=== PATIENT | male | born 1975 | race Asian ===

== ENCOUNTER → 2023-07-03 09:43 | Outpatient (CLI) | payer OTHER, MEDICAID, SELFPAY ==
--- NOTE | 2023-07-03 09:45 | DI.RAD.S_ITS ---
PROCEDURE: XR ELBOW LT MIN 3V INDICATIONS: L elbow pain w/tender nodule on lateral epicondyle TECHNIQUE: 3 views of the elbow were acquired. COMPARISON: None. FINDINGS: Bones: No displaced fracture or dislocation. Possible small enthesophyte at the lateral epicondyle. Soft tissues: No significant effusion. IMPRESSION: No acute radiographic abnormality. Possible small enthesophyte at the lateral epicondyle. Please consider MRI to further evaluate if clinically indicated. Dictated by: Elder Bonilla M.D. on 07/03/2023 at 10:52 Approved by: Elder Bonilla M.D. on 07/03/2023 at 10:53
[2023-07-03 10:52] LABS: Add Manual Diff / Slide Review NO; Basophils Absolute Auto 100 /uL (0-100); Basophils Percent Auto 0.8 % (0-2); Eosinophils Absolute Auto 200 /uL (0-450); Eosinophils Percent Auto 2.3 % (2-4); Hematocrit 42.2 % (41-53); Hemoglobin 14.2 g/dL (13.5-17.5); Lymphocytes Absolute Auto 2800 /uL (1100-4500); Lymphocytes Percent Auto 38.8 % (25-40); Mean Corpuscular HGB Conc 33.7 % (30-36); Mean Corpuscular Hemoglobin 31.2 PG (26-34); Mean Corpuscular Volume 92.5 fL (80-100); Monocytes Absolute Auto 500 /uL (0-900); Monocytes Percent Auto 7.2 % (3-14); Neutrophils Absolute Auto 3600 /uL (1500-7000); Neutrophils Percent Auto 50.9 % (50-75); Platelet Count 272 X10^3/uL (150-400); Red Blood Cell Count 4.56 X10^6/uL (4.5-5.9); Red Cell Distribution Width 12.5 % (11.6-14.8); White Blood Cell Count 7.2 X10^3/uL (4.5-11.0)
[2023-07-03 11:10] LABS: Hemoglobin A1C% w Est Avg Glu 5.6 % (4.0-6.0)
[2023-07-03 11:11] LABS: Alanine Aminotransferase 26 IU/L (<50); Albumin 4.1 g/dL (3.5-5.0); Albumin Globulin Ratio 1.4 (1.0-2.8); Alkaline Phosphatase 53 U/L (38-126); Aspartate Aminotransferase 26 IU/L (17-59); BUN Creatinine Ratio 18.1 (6-22); Bilirubin Total 0.6 mg/dL (0.2-1.3); Blood Urea Nitrogen 15 mg/dL (9-20); Calcium 8.9 mg/dL (8.4-10.2); Carbon Dioxide 25 mmol/L (22-32); Chloride 106 mmol/L (98-107); Cholesterol 185 mg/dL (140-199); Estimated Glomerular Filt Rate > 60 mL/min (>60); Glucose 108 mg/dL (70-100); HDL Cholesterol 34 mg/dL (40-60); HEMOLYSIS < 15 (0-50); LDL Cholesterol Calculated 117 mg/dL (<100); Potassium 4.4 mmol/L (3.4-5.1); Sodium 139 mmol/L (137-145); Total Protein 7.1 g/dL (6.3-8.2); Triglycerides 170 mg/dL (35-150)
== END ==
PROVIDERS: PCP Family Medicine; Referring Provider Family Medicine; Visit Provider Family Medicine
DX: M25.522 Pain in left elbow (principal); R53.83 Other fatigue; I10 Essential (primary) hypertension; E78.5 Hyperlipidemia, unspecified
CPT/HCPCS: 36415; 73080; 80053; 80061; 83036; 85025

== ENCOUNTER → 2023-07-16 09:57 | Outpatient (CLI) | payer OTHER, MEDICAID, SELFPAY ==
--- NOTE | 2023-07-16 09:58 | DI.US.S_ITS ---
PROCEDURE: US EXTREMITY NONVASC UPPER LT INDICATIONS: LEFT ELBOW PAIN. LEFT ELBOW LUMP. TECHNIQUE: Real-time scanning was performed of the left oval, with image documentation. COMPARISON: None. FINDINGS: Focused ultrasound examination of left elbow at patient's reported area of palpable lump show no discrete soft tissue mass or fluid collection. IMPRESSION: No abnormality is noted in lateral left elbow at patient's reported area of palpable lump. Dictated by: Horace De Jesus M.D. on 07/16/2023 at 12:52 Approved by: Horace De Jesus M.D. on 07/16/2023 at 12:53
== END ==
PROVIDERS: PCP Family Medicine; Referring Provider Family Medicine; Visit Provider Family Medicine
DX: M25.522 Pain in left elbow (principal)
CPT/HCPCS: 76882

== ENCOUNTER → 2024-02-07 09:21 | Outpatient (CLI) | payer OTHER, SELFPAY ==
--- NOTE | 2024-02-07 09:22 | DI.CT.S_ITS ---
PROCEDURE: CT LUNG LOW DOSE SCREENING INDICATIONS: Former Smoker TECHNIQUE: Noncontrast 2.0-2.5 mm thick sections acquired from the pulmonary apices to the posterior costophrenic angles. 7 mm thick axial MIP, and 5 mm coronal and sagittal reformats were then acquired. For radiation dose reduction, the following was used: automated exposure control, adjustment of mA and/or kV according to patient size. COMPARISON: None. FINDINGS: Image quality: Diagnostic. Lower Neck: No enlarged lymph nodes. Thyroid: No thyroid nodules which require sonographic follow up, per consensus guidelines. Axillae: No enlarged lymph nodes. Chest Wall: Unremarkable. Bones: Unremarkable. Lungs and Pleura: There is a 2 mm calcified stone in the left lower lobe (series 3, image 154), compatible with an old granuloma. No pneumothorax or pleural effusions. No consolidation. Heart: Heart size is normal. No pericardial effusion. Thoracic Vessels: The aorta and pulmonary arteries demonstrate normal size. Mediastinum and Skylar: There is a 2.3 x 2.4 by 5.1 cm low-density mass in the right paratracheal area demonstrating CT density 19.3. Esophagus: No wall thickening. Small hiatal hernia. Upper Abdomen: Visualized upper abdomen solid organs and bowel loops appear normal. IMPRESSION: 1. No suspicious pulmonary nodules. LUNG-RADS 2; continued annual screening, if eligible. 2. A 2.3 x 2.4 by 5.1 cm low-density mass in the right paratracheal area. Differential diagnoses are a duplication cyst versus an enlarged lymph node. Consider CT with contrast for further evaluation. Dictated by: Robert Aguilar M.D. on 02/07/2024 at 10:09 Approved by: Robert Aguilar M.D. on 02/07/2024 at 10:27
== END ==
LOC: CT 09:22
PROVIDERS: PCP Family Medicine; Referring Provider Family Medicine; Visit Provider Family Medicine
DX: Z12.2 Encounter for screening for malignant neoplasm of respiratory organs (principal); Z87.891 Personal history of nicotine dependence; R91.8 Other nonspecific abnormal finding of lung field; K44.9 Diaphragmatic hernia without obstruction or gangrene
CPT/HCPCS: 71271

== ENCOUNTER → 2024-02-18 10:40 | Outpatient (CLI) | payer OTHER, SELFPAY ==
--- NOTE | 2024-02-18 11:00 | DI.CT.S_ITS ---
PROCEDURE: CT CHEST W CON INDICATIONS: Right paratracheal/mediatinal mass on 02/[address] TECHNIQUE: After the administration of intravenous contrast, 5 mm thick sections acquired from the pulmonary apices to the posterior costophrenic angles. 1 mm axial lung, 5 mm thick coronal and sagittal reformats and 7 mm axial MIP were acquired. For radiation dose reduction, the following was used: automated exposure control, adjustment of mA and/or kV according to patient size. COMPARISON: [facility], CT, CT LUNG LOW DOSE SCREENING, 02/07/2024, 9:38. FINDINGS: Image quality: Diagnostic. Lower Neck: No enlarged lymph nodes. Thyroid: No thyroid nodules which require sonographic follow up, per consensus guidelines. Axillae: No enlarged lymph nodes. Chest Wall: Unremarkable. Bones: Unremarkable. Lungs and Pleura: No pneumothorax or pleural effusions. There is a calcified granuloma in the left lower lobe. No focal consolidation. Heart: Heart size is normal. No pericardial effusion. Thoracic Vessels: The aorta and pulmonary arteries demonstrate normal size. Mediastinum and Skylar: There is a 2.5 x 2.1 x 5.0 cm low-density mass in the right paratracheal area demonstrating no visible contrast enhancement, most likely a benign cyst. No enlarged lymph nodes. Esophagus: No wall thickening. Small hiatal hernia. Upper Abdomen: Visualized upper abdomen solid organs and bowel loops appear normal. IMPRESSION: 1. The 2.5 x 2.1 x 5.0 cm low-density mass in the right paratracheal area demonstrates no visible enhancement, compatible with a benign mass such as a duplication cyst. Dictated by: Robert Aguilar M.D. on 02/18/2024 at 15:14 Approved by: Robert Aguilar M.D. on 02/18/2024 at 15:22
== END ==
PROVIDERS: PCP Family Medicine; Referring Provider Family Medicine; Visit Provider Family Medicine
DX: J98.59 Other diseases of mediastinum, not elsewhere classified (principal); K44.9 Diaphragmatic hernia without obstruction or gangrene
CPT/HCPCS: 71260; Q9967

== ENCOUNTER → 2024-02-29 09:07 | Outpatient (CLI) | payer OTHER, SELFPAY ==
[2024-02-29 12:31] LABS: Hemoglobin A1C% w Est Avg Glu 6.3 % (4.0-6.0)
[2024-02-29 12:56] LABS: Prostate Specific Antigen Scrn 0.625 ng/mL (0.1-4.0)
== END ==
PROVIDERS: PCP Family Medicine; Referring Provider Family Medicine; Visit Provider Family Medicine
DX: R73.03 Prediabetes (principal); E78.5 Hyperlipidemia, unspecified; I10 Essential (primary) hypertension; Z12.5 Encounter for screening for malignant neoplasm of prostate; Z80.42 Family history of malignant neoplasm of prostate
CPT/HCPCS: 36415; 83036; G0103

== ENCOUNTER → 2024-03-03 13:12 | Outpatient (CLI) | payer OTHER, SELFPAY ==
--- NOTE | 2024-03-03 13:13 | DI.RAD.S_ITS ---
PROCEDURE: XR KNEE RT 3V INDICATIONS: R knee pain, swelling x4 weeks TECHNIQUE: 3 views of the knee were acquired. COMPARISON: None. FINDINGS: Bones: Prominent fabella. Widl-gf-[id number] degenerative changes particularly in the patellofemoral compartment. Patellar enthesopathy. Soft tissues: Small knee joint effusion. No suspicious calcifications. Possible prepatellar soft tissue swelling. IMPRESSION: Bbjy-tr-rmsqhqbx degenerative changes, particularly in the patellofemoral compartment. Small knee joint effusion. If there is high concern for further derangement, consider MRI evaluation. Dictated by: Elder Bonilla M.D. on 03/03/2024 at 15:45 Approved by: Elder Bonilla M.D. on 03/03/2024 at 15:46
[2024-03-03 15:01] LABS: Add Manual Diff / Slide Review NO; Basophils Absolute Auto 0 /uL (0-100); Basophils Percent Auto 0.5 % (0-2); Eosinophils Absolute Auto 100 /uL (0-450); Eosinophils Percent Auto 1.7 % (2-4); Hemoglobin 14.3 g/dL (13.5-17.5); Lymphocytes Absolute Auto 2800 /uL (1100-4500); Mean Corpuscular HGB Conc 33.4 % (30-36); Mean Corpuscular Hemoglobin 31.1 PG (26-34); Mean Corpuscular Volume 93.3 fL (80-100); Monocytes Absolute Auto 900 /uL (0-900); Monocytes Percent Auto 10.6 % (3-14); Neutrophils Absolute Auto 4400 /uL (1500-7000); Neutrophils Percent Auto 53.2 % (50-75); Platelet Count 274 X10^3/uL (150-400); Red Blood Cell Count 4.61 X10^6/uL (4.5-5.9); Red Cell Distribution Width 12.8 % (11.6-14.8); White Blood Cell Count 8.2 X10^3/uL (4.5-11.0)
[2024-03-03 15:10] LABS: D Dimer 360 ng/ml (<500)
== END ==
PROVIDERS: PCP Family Medicine; Referring Provider Family Medicine; Visit Provider Family Medicine
DX: M25.461 Effusion, right knee (principal); M25.561 Pain in right knee
CPT/HCPCS: 36415; 73562; 85025; 85379

== ENCOUNTER → 2024-03-06 06:54 | Outpatient (CLI) | payer OTHER, SELFPAY ==
--- NOTE | 2024-03-06 06:56 | DI.US.S_ITS ---
PROCEDURE: US PERIPH VENOUS LOW EXTREM RT INDICATIONS: Pain in right knee TECHNIQUE: Real-time imaging, as well as color and pulse Doppler interrogation, were performed of the lower extremity deep veins from the inguinal ligament to the popliteal fossa, with documentation of the visualized calf veins. COMPARISON: None. FINDINGS: A small fluid collection is present within the posteromedial and the Dom posterolateral aspect of the right knee. The popliteal vein is patent and compressible. IMPRESSION: Small posterior fluid collection of the right knee which may represent a small Fishman's cyst. Dictated by: Tomasa Sanon M.D. on 03/06/2024 at 16:22 Approved by: Tomasa Sanon M.D. on 03/06/2024 at 16:28
== END ==
PROVIDERS: PCP Family Medicine; Referring Provider Family Medicine; Visit Provider Family Medicine
DX: M25.561 Pain in right knee (principal)
CPT/HCPCS: 93971

== ENCOUNTER → 2024-12-25 09:03 | Outpatient (CLI) | payer OTHER, SELFPAY ==
[2024-12-25 09:28] LABS: Hematocrit 44.7 % (41-53); Hemoglobin 14.9 g/dL (13.5-17.5); Mean Corpuscular HGB Conc 33.3 % (30-36); Mean Corpuscular Hemoglobin 30.9 PG (26-34); Mean Corpuscular Volume 92.8 fL (80-100); Platelet Count 288 X10^3/uL (150-400); Red Blood Cell Count 4.82 X10^6/uL (4.5-5.9); Red Cell Distribution Width 12.7 % (11.6-14.8)
[2024-12-25 09:50] LABS: BUN Creatinine Ratio 20.5 (6-22); Blood Urea Nitrogen 18 mg/dL (9-20); Calcium 8.9 mg/dL (8.4-10.2); Carbon Dioxide 25 mmol/L (22-32); Chloride 102 mmol/L (98-107); Cholesterol 172 mg/dL (140-199); Estimated Glomerular Filt Rate > 60 mL/min (>60); Glucose 117 mg/dL (70-100); HDL Cholesterol 36 mg/dL (40-60); HEMOLYSIS < 15 (0-50); LDL Cholesterol Calculated 102 mg/dL (<100); Potassium 4.4 mmol/L (3.4-5.1); Sodium 138 mmol/L (137-145); Triglycerides 169 mg/dL (35-150)
[2024-12-25 10:14] LABS: Creatinine Urine Random 125.95 mg/dL
[2024-12-25 10:21] LABS: Microalbumin Urine Random < 0.6 mg/dL (0-1.6)
[2024-12-25 10:35] LABS: HIV 1 & 2 Ab/Ag 4th Gen Combo NEGATIVE (NEGATIVE); Hep C Virus Ab w/Reflex Quant NEGATIVE s/c (NEGATIVE)
== END ==
PROVIDERS: PCP Family Medicine; Referring Provider Family Medicine; Visit Provider Family Medicine
DX: I10 Essential (primary) hypertension (principal); R73.03 Prediabetes; K21.9 Gastro-esophageal reflux disease without esophagitis; R10.13 Epigastric pain; Z13.9 Encounter for screening, unspecified
CPT/HCPCS: 36415; 80048; 80061; 82043; 82570; 83013; 85027; 86803; 87389

== ENCOUNTER → 2025-01-04 09:13 | Outpatient (CLI) | payer OTHER, SELFPAY ==
[2025-01-05 15:40] LABS: Interpretation Negative (Negative)
== END ==
PROVIDERS: PCP Family Medicine; Referring Provider Family Medicine; Visit Provider Family Medicine
DX: K21.9 Gastro-esophageal reflux disease without esophagitis (principal); R10.13 Epigastric pain
CPT/HCPCS: 83013

== ENCOUNTER → 2025-02-12 07:07 | Outpatient (CLI) | payer OTHER, SELFPAY ==
--- NOTE | 2025-02-12 07:08 | DI.US.S_ITS ---
PROCEDURE: US ABDOMEN LIMITED INDICATIONS: Chronic epigastric/RUQ pain, umbilical hernia TECHNIQUE: Real-time scanning was performed of the abdominal and retroperitoneal organs, with image documentation. COMPARISON: None. FINDINGS: Liver: Liver is normal in size and homogeneous in echotexture. 1 cm simple cyst adjacent to the gallbladder fossa. Normal hepatopetal main portal vein flow on color Doppler images. Gallbladder: Numerous nondependent echogenic small approximately 3 mm round foci along the gallbladder wall suggest adenomyomatosis, numerous gallbladder polyps, less likely to represent noncalcified gallstones or other process. No ultrasound evidence of gallbladder wall thickening or pericholecystic fluid. Sonographic Herrera sign is noted as negative. Biliary ducts: Intrahepatic bile ducts are non-dilated. Extrahepatic bile duct caliber measures 5 mm. Normal is 6-7 mm or less in diameter, or 10 mm or less post-cholecystectomy. Pancreas: Pancreas is not visualized due to overlying bowel gas. Miscellaneous: Umbilical hernia containing fat mostly reducible with wall defect approximately 2 cm. No free abdominal fluid. IMPRESSION: Numerous echogenic nondependent foci in the gallbladder suspected adenomyomatosis, gallbladder polyps or other. No ultrasound evidence of cholecystitis. Common bile duct within normal limits 5 mm. Periumbilical hernia containing fat only. Dictated by: Tee Hernandez M.D. on 02/12/2025 at 10:44 Approved by: Tee Hernandez M.D. on 02/12/2025 at 10:51
--- NOTE | 2025-02-12 07:08 | DI.CT.S_ITS ---
PROCEDURE: CT LUNG LOW DOSE SCREENING INDICATIONS: Former smoker x28 years TECHNIQUE: Noncontrast 2.0-2.5 mm thick sections acquired from the pulmonary apices to the posterior costophrenic angles. 7 mm thick axial MIP, and 5 mm coronal and sagittal reformats were then acquired. For radiation dose reduction, the following was used: automated exposure control, adjustment of mA and/or kV according to patient size. COMPARISON: [facility], CT, CT CHEST W CON, 02/18/2024, 10:48. [facility], CT, CT LUNG LOW DOSE SCREENING, 02/07/2024, 9:38. FINDINGS: Image quality: Diagnostic. Lower Neck: No enlarged lymph nodes. Thyroid: No thyroid nodules which require sonographic follow up, per consensus guidelines. Axillae: No enlarged lymph nodes. Chest Wall: Unremarkable. Bones: Unremarkable. Lungs and Pleura: No pneumothorax or pleural effusions. No new suspicious or enlarging pulmonary nodules. No septal thickening or nodularity. Heart: Heart size is normal. No pericardial effusion. Thoracic Vessels: The aorta and pulmonary arteries demonstrate normal size. Mediastinum and Skylar: No enlarged lymph nodes. Stable hypodense lesion in the right paratracheal region in close proximity to the ascending aorta which may represent a duplication cyst versus pericardial recess. Esophagus: No wall thickening. No hiatal hernia. Upper Abdomen: Visualized upper abdomen solid organs and bowel loops appear normal. IMPRESSION: No suspicious pulmonary nodules. LUNG-RADS 1; continued annual screening, if eligible. Clinically Significant Non-pulmonary Findings: None. Dictated by: Nnamdi Márquez M.D. on 02/12/2025 at 21:08 Approved by: Nnamdi Márquez M.D. on 02/12/2025 at 21:16
== END ==
LOC: US 07:07
PROVIDERS: PCP Family Medicine; Referring Provider Family Medicine; Visit Provider Family Medicine
DX: K76.89 Other specified diseases of liver (principal); R10.11 Right upper quadrant pain; K42.9 Umbilical hernia without obstruction or gangrene; Z12.2 Encounter for screening for malignant neoplasm of respiratory organs; R10.13 Epigastric pain; Z87.891 Personal history of nicotine dependence
CPT/HCPCS: 71271; 76705

== ENCOUNTER 2025-03-12 10:17 | Day surgery (SDC) | payer OTHER, SELFPAY ==
[2025-03-12] VITALS (7 sets, daily range): BP systolic 89–146; BP diastolic 58–88; PULSE 62–77; RESP 14–18; TEMP 36.1–36.6; O2SAT 97–100
--- NOTE | 2025-03-12 | PATH_ITS ---
[facility] Accession Number: [id number] No. of containers..02 Tissue . 01 Material submitted: . PART A: stomach - GASTRIC, ANTRUM PART B: rectum - RECTAL POLYP @ 10CM . 01 Diagnosis: Part A: GASTRIC, ANTRUM: Gastric antral mucosa with no diagnostic alterations. No Helicobacter organisms identified on H/E stain. No intestinal metaplasia, dysplasia, or malignancy identified. . Part B: RECTAL POLYP @ 10CM: Neuroendocrine tumor G1 (Well differentiated neuroendocrine tumor). Size: 8 mm in greatest linear extent. Ki67 proliferative index: less than 1%. Neuroendocrine tumor involves the cauterized deep biopsy edge. [facility] 03/18/2025 1636 Local . 01 Electronically signed: . Moe Stern MD, Pathologist NPI- [id number] . 01 Gross description: . Part A: GASTRIC,ANTRUM: Received in formalin is 1 fragment(s) of bernal, soft tissue measuring 0.5 x 0.3 x 0.2 cm submitted entirely in 1 cassette(s) . Part B: RECTAL POLYP @ 10CM: Received in formalin is 1 fragment of bernal soft tissue measuring 1.0 x 1.0 x 1.1 cm. Specimen is sectioned and submitted in its entirety in 1 cassette. /[facility] 03/18/2025 163 Local . 01 Microscopic: . Part B: RECTAL POLYP @ 10CM: Sections show colonic mucosa with a proliferation of neoplastic cells arranged in nests and cords within the lamina propria. The cells have round to ovoid nuclei and moderate amounts of pale eosinophilic cytoplasm. The neoplastic cells are uniformly positive for synaptophysin by immunohistochemical stain, supporting the diagnosis of neuroendocrine tumor. Immunohistochemical stain results show a Ki67 index of < 1%, indicating very low proliferative activity (evaluation is somewhat limited by suboptimal staining due to processing artifact). All controls stain as expected. Mitotic figures are not identified. The neoplasm measures 8 mm on the glass slide. The lesion involves the deep biopsy edge. . Notes: Neuroendocrine neoplasm categories as per WHO Classification of Tumours, Digestive System Tumours, 5th edition, 2019. . 01 Pathologist provided ICD-10: D3A.026 . 01 CPT . 651985, [id number], [id number], [id number] Specimen Comment: A courtesy copy of this report has been sent to [facility] Pathology Performed at: [address] [id number] MD Moe Stern MD Phone: [phone]
--- NOTE | 2025-03-12 10:42 | PM.PREOP ---
Pre-operative Note COVID-19 COVID-19 status: Not tested Interval Note History & Physical reviewed/Exam performed by Physician: Yes Changes to H&P: No ASA Class (for procedural sedation): III
[2025-03-12] MEDS: LACTATED RINGERS 1,000 ML 42 ML IV (10:50)
--- NOTE | 2025-03-12 11:43 | PM.OP.COLON ---
Operative Date/Time/Diagnoses Date of procedure: 03/12/25 Time of procedure: 11:01 Pre-op diagnosis: Abdominal pain nausea and weight loss Post-op diagnosis: same Procedure & Clinicians Study performed: Colonoscopy with biopsy Same procedure as scheduled: Yes Indications: Vague abdominal symptoms Surgeon: Moises Streeter Procedure Notes Procedure in detail: Patient was brought to the endoscopy suite and initially upper endoscopy was performed. This will be dictated separately subsequently the table was rotated and a 2 m flexible fiberoptic colonoscope was passed transanally into the rectum and clear around the cecum under direct endoscopic vision. Cecum was positively identified at confluence of the tenia coli. Exam was performed retrograde. Prep was adequate. Cecum and ascending colon were normal in appearance. There were no mucosal abnormalities. The hepatic flexure transverse colon and splenic flexures were next examined. These were also without evidence of mucosal abnormalities. The descending colon was similarly without evidence of polyp arteriovenous malformation or ulceration. Sigmoid colon was tortuous was but otherwise normal. At 10 mm of the rectum a 12 meter polyp was snared with a hot snare. It was recovered and sent for pathology rest of the rectum was normal as the scope was withdrawn. Patient tolerated the procedure well and was transported to PACU in good condition. Scope withdrawal time: 1142 Findings: polyp(s) Specimen(s): other (Rectal polyp) Complications: none Impression: Rectal polyp Post-procedure Recommendations: Colonoscopy in 1 year Plan for aftercare: Discharge to home when awake and alert. Follow-up with me in 2 weeks. Follow up: weeks (2) Disposition: PACU
--- NOTE | 2025-03-12 11:49 | PM.OP.ENDO ---
Operative Date/Time/Diagnoses Date of procedure: 03/12/25 Time of procedure: 11:01 Pre-op diagnosis: Abdominal pain with some weight loss Post-op diagnosis: same Procedure & Clinicians Study performed: EGD with biopsy Same procedure as scheduled: Yes Indications: Vague abdominal pain with weight loss Surgeon: Moises Streeter Procedure Notes Procedure in detail: Patient was placed in the endo suite and the left lateral decubitus position. A bite block was positioned between his incisors. An upper endoscope was passed transorally into the upper esophagus down to the stomach and duodenal under direct endoscopic vision. The duodenal was normal through its 3rd portion. Upon entry into the stomach proper antral gastritis was identified. Additionally there was a 2 x 4 mm pre antral polyp. This was biopsied with cold biopsy forceps and submitted for examination. Z-line was at 39 cm remainder of the stomach was normal in appearance. The distal mid and upper esophagus were similarly normal in appearance. Patient tolerated the procedure well and was retained in the endo suite for colonoscopy. Scope withdrawal time: 1142 Findings: gastritis Specimen(s): other (Gastric biopsy) Complications: none Impression: Antral gastritis with small pre-pyloric polyp. Post-procedure Plan for aftercare: Discharged home when awake and alert. Follow up: weeks (2) Disposition: PACU
== END 2025-03-12 12:35 | disposition home or self-care (01) ==
PROVIDERS: PCP Family Medicine; Referring Provider Surgery; Visit Provider Surgery
PROC: 0DJ08ZZ Inspection of Upper Intestinal Tract, Via Natural or Artificial Opening Endoscopic (ICD-10-PCS; CPT 45385; principal; 2025-03-12 11:30)
PROC: 0DJD8ZZ Inspection of Lower Intestinal Tract, Via Natural or Artificial Opening Endoscopic (ICD-10-PCS; CPT 45378; 2025-03-12 11:30)
DX: D3A.026 Benign carcinoid tumor of the rectum (principal); R11.0 Nausea; R63.4 Abnormal weight loss; K29.70 Gastritis, unspecified, without bleeding
CPT/HCPCS: 45385; 43239; 45380; J2704